=== PATIENT | female | born 1990 | race Caucasian/White ===

== ENCOUNTER 2018-04-19 21:14 | Emergency (ER) | payer SELFPAY ==
[2018-04-19] MEDS ORDERED: NORMAL SALINE 1000 ML 1,000 ML IV ONE (22:45)
[2018-04-19] MEDS ORDERED: CYCLOBENZAPRINE HCL 10 MG TABLET PO ONE (22:49)
--- NOTE | 2018-04-19 23:05 | ER Document Report ---
ED Headache - General Chief Complaint: Headache Stated Complaint: HEAD PAIN Time Seen by Provider: 04/19/18 22:25 Notes: Patient is a 19-year-old female presenting to the emergency department complaining of a headache for the last 4 days. States the headache has been intermittent for months now and is usually relieved with [id number] Motrin. States this headache is just like the others but unrelieved with Motrin. States this headache started in her cervical neck paraspinal muscles and moved into bilateral shoulders. Patient states at times it also moves over her entire head and into her forehead. Patient denies any fever, trauma, IV drug use, nuchal rigidity, photophobia. Patient does admit to intermittent nausea but denies vomiting. Patient denies any new lifting or moving in the last few weeks. Patient states she is without insurance and has not seen a PCP for these headaches. Patient states she is unaware if she has a diagnosis of migraines. Patient denies urinary retention, loss of bowel or bladder. Patient also denies chest pain, shortness of breath, abdominal pain, diarrhea, URI symptoms. Past history: Diverticulitis Medications: None Allergies: Shellfish Surgical history: None Last menstrual period 04/16/2018 TRAVEL OUTSIDE OF THE [place] IN LAST 30 DAYS: No - Related Data Allergies/Adverse Reactions: shellfish derived Allergy (Verified 04/19/18 21:17) Past Medical History - General Information source: Patient - Social History Smoking Status: Unknown if Ever Smoked Lives with: Family Family History: Reviewed & Not Pertinent Review of Systems - Review of Systems Constitutional: See HPI EENT: See HPI Cardiovascular: See HPI Respiratory: See HPI Gastrointestinal: See HPI Genitourinary: See HPI Female Genitourinary: See HPI Musculoskeletal: See HPI Skin: No symptoms reported Hematologic/Lymphatic: No symptoms reported Neurological/Psychological: See HPI Physical Exam - Vital signs Vitals: Temp Pulse Resp BP Pulse Ox 99.0 F 77 16 109/74 98 04/19/18 21:36 04/19/18 21:36 04/19/18 21:36 04/19/18 21:36 04/19/18 21:36 - Notes Notes: GENERAL: Alert, interacts well. No acute distress. HEAD: Normocephalic, atraumatic. EYES: Pupils equal, round, and reactive to light. Extraocular movements intact. ENT: Oral mucosa moist, tongue midline. NECK: Full range of motion. Supple. Trachea midline. pain paraspinal muscles BL cervical, no bony tenderness. pain also into BL trapezius muscles, increased pain upon shoulder shrugging. LUNGS: Clear to auscultation bilaterally, no wheezes, rales, or rhonchi. No respiratory distress. HEART: Regular rate and rhythm. No murmur ABDOMEN: Soft, non-tender. Non-distended. Bowel sounds present in all 4 quadrants. EXTREMITIES: Moves all 4 extremities spontaneously. No edema, normal radial and dorsalis pedis pulses bilaterally. No cyanosis. BACK: no cervical, thoracic, lumbar midline tenderness. No saddle anesthesia, normal distal neurovascular exam. NEUROLOGICAL: Alert and oriented x3. Normal speech. cranial nerves II through XII grossly intact PSYCH: Normal affect, normal mood. SKIN: Warm, dry, normal turgor. No rashes or lesions noted. Course - Re-evaluation Re-evalutation: After treatments patient states headache is now resolved. Pain in pts paraspinal neck and into shoulders consistent with tension headache. Once patient is in the room alone without her states she has had an increase in stress with her 's job. Toradol and Flexeril be given for home use. Follow-up with primary care. Return precautions given - Vital Signs Vital signs: Temp Pulse Resp BP Pulse Ox 97.6 F 66 20 117/54 L 96 04/20/18 02:25 04/20/18 02:25 04/20/18 02:25 04/20/18 02:25 04/20/18 02:25 - Laboratory Result Diagrams: 04/20/18 00:10 04/20/18 00:10 Laboratory results interpreted by me: 04/20/18 00:10 WBC 13.9 H Absolute Lymphocytes 4.8 H Discharge - Discharge Clinical Impression: Tension headache Condition: Stable Disposition: HOME, SELF-CARE Instructions: Headache ([facility]), Toradol Injection ([facility]) Prescriptions: Ketorolac Tromethamine [Toradol 10 mg Tablet] 10 mg PO Q8HP PRN #24 tablet PRN Reason: Cyclobenzaprine HCl [Flexeril 10 mg Tablet] 10 mg PO TIDP PRN #15 tab PRN Reason:
[2018-04-20 00:26] LABS: ABSOLUTE BASOPHILS # (AUTO) 0.2 10^3/uL (0.0-0.2); ABSOLUTE EOSINOPHILS # (AUTO) 0.3 10^3/uL (0.0-0.6); ABSOLUTE LYMPHOCYTES (AUTO) 4.8 10^3/uL (0.5-4.7); ABSOLUTE MONOCYTES (AUTO) 0.9 10^3/uL (0.1-1.4); ABSOLUTE NEUT (AUTO) 7.7 10^3/uL (1.7-8.2); BASOPHILS % (AUTO) 1.5 % (0-2); HEMATOCRIT 41.4 % (36.0-47.0); HEMOGLOBIN 13.9 g/dL (12.0-15.5); LYMPHOCYTES % (AUTO) 34.7 % (13-45); MEAN CORPUSCULAR HEMOGLOBIN 29.1 pg (27.0-33.4); MEAN CORPUSCULAR HGB CONC 33.6 g/dL (32.0-36.0); MEAN CORPUSCULAR VOLUME 87 fl (80-97); MONOCYTES % (AUTO) 6.4 % (3-13); PLATELET COUNT 328 10^3/uL (150-450); RED BLOOD COUNT 4.78 10^6/uL (3.72-5.28); RED CELL DISTRIBUTION WIDTH 13.5 % (11.5-14.0); SEGMENTED NEUTROPHILS % (AUTO) 55.4 % (42-78); TOTAL CELLS COUNTED % (AUTO) 100 %; WHITE BLOOD COUNT 13.9 10^3/uL (4.0-10.5)
[2018-04-20 00:37] LABS: ALANINE AMINOTRANSFERASE 44 U/L (9-52); ALBUMIN 4.1 g/dL (3.5-5.0); ALKALINE PHOSPHATASE 89 U/L (38-126); ANION GAP 9 (5-19); ASPARTATE AMINO TRANSFERASE 35 U/L (14-36); BILIRUBIN,DIRECT 0.1 mg/dL (0.0-0.4); BILIRUBIN,TOTAL 0.4 mg/dL (0.2-1.3); BLOOD UREA NITROGEN 14 mg/dL (7-20); CALCIUM 9.5 mg/dL (8.4-10.2); CARBON DIOXIDE 24 mmol/L (22-30); CHLORIDE 106 mmol/L (98-107); GLUCOSE 109 mg/dL (75-110); POTASSIUM 4.1 mmol/L (3.6-5.0); SODIUM 139.4 mmol/L (137-145); TOTAL PROTEIN 7.4 g/dL (6.3-8.2)
[2018-04-20] MEDS ORDERED: KETOROLAC TROMETHAMINE INJ/PF 30 MG/1 ML SDV IV ONE (01:52)
[2018-04-20 02:37] VITALS: BP 117/54
== END 2018-04-20 02:41 | disposition home or self-care (01) ==
LOC: ER 21:14
DX: G44.209 Tension-type headache, unspecified, not intractable (principal); R11.0 Nausea; Z91.013 Allergy to seafood; M79.18 Myalgia, other site
CPT/HCPCS: 99284; 96361; 96374; 36415; 84703; 85025; 80053; J1885; J7030

== ENCOUNTER 2018-06-18 06:19 | Emergency (ER) | payer OTHER ==
[2018-06-18 06:27] VITALS: BP 150/86
[2018-06-18] MEDS ORDERED: DIAZEPAM 5 MG TABLET PO ONE (06:54)
[2018-06-18] MEDS ORDERED: KETOROLAC TROMETHAMINE 60 MG/2 ML SDV IM ONE (06:54)
--- NOTE | 2018-06-18 06:57 | ER Document Report ---
ED Neck/Back Problem - General Chief Complaint: Back Pain Stated Complaint: BACK PAIN Time Seen by Provider: 06/18/18 06:41 Notes: 27-year-old female to the emergency department complaining of some left low back pain radiating down her left leg. 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 Did not fall. Did not land on her but or back. Just began to develop pain in the left gluteal region radiating down the left leg. Currently not . Not on any medications. No dysuria. No fever, chills, sweats. No loss of bowel or bladder function. No numbness in the inner thigh area. No other symptoms at this time. Able to walk. Able to stand. Able to bend over but hurts. TRAVEL OUTSIDE OF THE [place] IN LAST 30 DAYS: No - HPI Onset: Just prior to arrival Where: Work Onset: Sudden Timing: Constant Quality of pain: Achy - Related Data Allergies/Adverse Reactions: shellfish derived Allergy (Verified 06/18/18 06:42) Past Medical History - General Information source: Patient - Social History Smoking Status: Current Every Day Smoker Frequency of alcohol use: None Drug Abuse: None Lives with: Spouse/Significant other Family History: Reviewed & Not Pertinent Patient has suicidal ideation: No Patient has homicidal ideation: No Renal/ Medical History: Denies: Hx Peritoneal Dialysis Review of Systems - Review of Systems Notes: Constitutional: denies: Chills, Diaphoresis, Fever, Malaise, Weakness EENT: denies: Eye discharge, Blurred vision, Tearing, Double vision, Nose congestion, Nose discharge, Throat swelling, Mouth pain Cardiovascular: denies: Palpitations, Heart racing, Orthopnea, Dyspnea, Chest pain Respiratory: denies: Cough, Hurts to breathe, Wheezing, Shortness of breath Gastrointestinal: denies: Abdominal pain, Diarrhea, Nausea, Vomiting, Black stools, bright red blood in stool Genitourinary: denies: Burning, Dysuria, Discharge, Frequency, Flank pain, Hematuria Musculoskeletal: denies: Joint pain, Joint swelling, Muscle pain, Muscle stiffness. Complaining of pain in the low back, left piriformis/gluteal muscle area radiating down the left leg. Hematologic/Lymphatic: denies: Anemia, Easy bleeding, Easy bruising, Blood clots Neurological/Psychological: denies: Confusion, Dementia, Depression, Loss of consciousness Skin: No lesions, no masses, no skin breakdown, no abscesses Physical Exam - Vital signs Vitals: Temp Pulse Resp BP Pulse Ox 98.0 F 83 16 150/86 H 98 06/18/18 06:24 06/18/18 06:24 06/18/18 06:24 06/18/18 06:24 06/18/18 06:24 Interpretation: Normal - General General appearance: Appears well, Alert - HEENT Head: Normocephalic, Atraumatic Eyes: Normal Pupils: PERRL - Respiratory Respiratory status: No respiratory distress Chest status: Nontender Breath sounds: Normal Chest palpation: Normal - Cardiovascular Rhythm: Regular Heart sounds: Normal auscultation Murmur: No - Abdominal Inspection: Normal Distension: No distension Bowel sounds: Normal Tenderness: Nontender Organomegaly: No organomegaly - Back Back: Normal, Tender - In the left low back and left sacroiliac joint. + straight leg on the left. - Extremities General upper extremity: Normal inspection, Nontender, Normal color, Normal ROM , Normal temperature General lower extremity: Normal inspection, Nontender, Normal color, Normal ROM , Normal temperature, Normal weight bearing. No: Jackson's sign - Neurological Neuro grossly intact: Yes Cognition: Normal Orientation: AAOx4 Mullens Coma Scale Eye Opening: Spontaneous Lilibeth Coma Scale Verbal: Oriented Lilibeth Coma Scale Motor: Obeys Commands Lilibeth Coma Scale Total: 15 Speech: Normal Motor strength normal: LUE, RUE, LLE, RLE Sensory: Normal - Psychological Associated symptoms: Normal affect, Normal mood - Skin Skin Temperature: Warm Skin Moisture: Dry Skin Color: Normal Course - Re-evaluation Re-evalutation: 06/18/18 07:15 Patient has significant obesity. She has a BMI of 53. 140 kg. Did have a discussion with her with regards to low back pain and weight loss. She was advised to begin a strict low carbohydrate diet at this time. I am giving her some Valium for muscle relaxing as well as an anti-inflammatory prescription medication called Mobic. I have advised her to use some ice packs at this time. Red flag warning signs were discussed with the patient. Patient has no active red flag warning signs and was able to verbalize to me things that she should return for: Fever, progressive loss of function of the left lower extremity, loss of bowel or bladder function, numbness in the crotch area. At this time will discharge in stable condition. - Vital Signs Vital signs: Temp Pulse Resp BP Pulse Ox 98.0 F 83 16 150/86 H 98 06/18/18 06:24 18 06:24 06/18/18 06:24 06/18/18 06:24 06/18/18 06:24 Discharge - Discharge Clinical Impression: Low back pain Qualifiers: Chronicity: acute Back pain laterality: left Sciatica presence: with sciatica Sciatica laterality: sciatica of left side Qualified Code(s): M54.42 - Lumbago with sciatica, left side Condition: Good Disposition: HOME, SELF-CARE Instructions: Ice Packs ([facility]), Low Back Pain ([facility]), Muscle Strain ([facility]), Pain Medication Injection ([facility]) Prescriptions: Diazepam [Valium 5 mg Tablet] 5 mg PO QHS PRN #15 tablet PRN Reason: Muscle Spasms Meloxicam [Mobic] 15 mg PO DAILY 15 Days #15 tablet Forms: Return to Work
== END 2018-06-18 07:10 | disposition home or self-care (01) ==
LOC: ER 06:19
DX: M54.41 Lumbago with sciatica, right side (principal); X50.1XXA Overexertion from prolonged static or awkward postures, initial encounter; Y99.0 Civilian activity done for income or pay; F17.200 Nicotine dependence, unspecified, uncomplicated; E66.9 Obesity, unspecified; Z68.43 Body mass index [BMI] 50.0-59.9, adult; Z91.013 Allergy to seafood
CPT/HCPCS: 99283; 96372; J1885

== ENCOUNTER 2018-06-18 11:34 | Emergency (ER) | payer SELFPAY ==
[2018-06-18] MEDS ORDERED: HYDROMORPHONE HCL INJ/PF 2 MG/ML AMPULE IM ONE (12:04)
[2018-06-18] MEDS ORDERED: LIDOCAINE 5% (700 MG) TRANSDERMAL ADH..PATCH TP ONE (12:06)
--- NOTE | 2018-06-18 12:06 | ER Document Report ---
HPI - HPI Patient complains to provider of: Low back pain Time Seen by Provider: 06/18/18 11:47 Onset: Just prior to arrival Onset/Duration: Persistent Quality of pain: Sharp Pain Level: 5 Context: Patient states that she has a history of chronic low back pain although this pain is more severe than normal. Patient states pain radiates to the left hip and leg area. Patient states she was seen earlier in the emergency department and given a shot of Toradol and Valium. Patient denies any pain relief symptoms. Patient denies any fever or injury. Patient denies any urinary retention or incontinence. Associated Symptoms: Other - Low back pain Exacerbated by: Movement Relieved by: Denies Similar symptoms previously: Yes Recently seen / treated by doctor: Yes - ROS ROS below otherwise negative: Yes Systems Reviewed and Negative: Yes All other systems reviewed and negative - CONSTITUTIONAL Constitutional: DENIES: Fever, Chills - NEURO Neurology: DENIES: Headache, Weakness - GASTROINTESTINAL Gastrointestinal: DENIES: Nausea, Patient vomiting - URINARY Urinary: DENIES: Dysuria - MUSCULOSKELETAL Musculoskeletal: REPORTS: Extremity pain, Back Pain - DERM Skin Color: Normal Skin Problems: None Past Medical History - General Information source: Patient - Social History Smoking Status: Current Every Day Smoker Smoking Education Provided: Yes Frequency of alcohol use: None Drug Abuse: None Occupation: administrative support assistant Lives with: Spouse/Significant other Family History: Reviewed & Not Pertinent Renal/ Medical History: Denies: Hx Peritoneal Dialysis Musculoskeletal Medical History: Reports Other - Chronic back pain Surgical Hx: Negative Vertical Provider Document - CONSTITUTIONAL Agree With Documented VS: Yes Exam Limitations: No Limitations General Appearance: WD/WN, No Apparent Distress Notes: PHYSICAL EXAMINATION: GENERAL: Well-appearing, morbidly obese and in no acute distress. HEAD: Atraumatic, normocephalic. EYES: sclera clear, anicteric, conjunctiva are normal. ENT: nares patent, Moist mucous membranes. NECK: Normal range of motion, supple no lymphadenopathy LUNGS: respirations unlabored HEART: Regular rate and rhythm without murmurs EXTREMITIES: Normal range of motion, no pitting or edema. No cyanosis. Gait normal, pt ambulates without difficulty BACK: Left lower lumbar paraspinal tenderness, left SI joint tenderness, no deformities or step-offs. No CVA tenderness. NEUROLOGICAL: Cranial nerves grossly intact. Normal speech, normal gait. No saddle anesthesia. 2+ bilateral Achilles reflexes PSYCH: Normal mood, normal affect. SKIN: Warm, Dry, normal turgor, no rashes or lesions noted. - INFECTION CONTROL TRAVEL OUTSIDE OF THE [place] IN LAST 30 DAYS: No Course - Re-evaluation Re-evalutation: 06/18/18 12:06 The patient presents with low back pain without signs of spinal cord compression , cauda equina syndrome, infection, aneurysm, or other serious etiology. The patient is neurologically intact. Given the extremely risk of these diagnoses further testing and evaluation for these possibilities does not appear to be indicated at this time. Patient has been instructed to return if the symptoms worsen or change in any way. 06/18/18 13:[address] Gagnon regarding patient presentation given that she returned after previous ER visit this morning. Agrees with treatment plan at this time, no additional testing advised. - Vital Signs Vital signs: Temp Pulse Resp BP Pulse Ox 98.5 F 65 18 146/80 H 99 06/18/18 11:37 06/18/18 11:37 06/18/18 11:37 06/18/18 11:37 06/18/18 11:37 Discharge - Discharge Clinical Impression: Low back pain Qualifiers: Chronicity: unspecified Back pain laterality: left Sciatica presence: with sciatica Sciatica laterality: sciatica of left side Qualified Code(s): M54.42 - Lumbago with sciatica, left side Condition: Stable Disposition: HOME, SELF-CARE Instructions: Ice Packs ([facility]), Low Back Pain ([facility]), Pain Medication Injection ( [facility]) Additional Instructions: Return immediately for any new or worsening symptoms Followup with your primary care provider, call tomorrow to make a followup appointment Forms: Smoking Cessation Education Referrals: [facility] [Provider Group] - Follow up as needed
[2018-06-18 13:48] VITALS: BP 150/70
== END 2018-06-18 13:44 | disposition home or self-care (01) ==
LOC: ER 11:34
DX: M54.42 Lumbago with sciatica, left side (principal); E66.01 Morbid (severe) obesity due to excess calories; F17.200 Nicotine dependence, unspecified, uncomplicated
CPT/HCPCS: 99283; 96372; J1170

== ENCOUNTER 2018-06-19 11:43 | Emergency (ER) | payer SELFPAY ==
[2018-06-19] MEDS ORDERED: LIDOCAINE 5% (700 MG) TRANSDERMAL ADH..PATCH TP ONE (12:22)
[2018-06-19] MEDS ORDERED: KETOROLAC TROMETHAMINE 60 MG/2 ML SDV IM ONE (12:22)
[2018-06-19] MEDS ORDERED: CYCLOBENZAPRINE HCL 10 MG TABLET PO ONE (12:22)
--- NOTE | 2018-06-19 12:28 | ER Document Report ---
HPI - HPI Patient complains to provider of: buttocks pain Time Seen by Provider: 06/19/18 12:13 Pain Level: 5 Context: Patient is a 19-year-old female complaining of lower back pain radiating to her left buttocks. Patient states she was to this facility twice yesterday initially treated with meloxicam and Valium. States that did not help her pain whatsoever so she returned. States she was then treated with Dilaudid by another provider in the emergency room states that helped a lot. Patient states she has not taken any of the Valium or meloxicam because initially they did not help her at all. Patient is initially requesting more pain management at this time. Patient denies any urinary retention, denies loss of bowel or bladder. Denies any increase or decrease in her pain. States the Dilaudid yesterday did decrease her pain but it has come back the same as it was prior to the Dilaudid administration. Patient stated she has been to this facility previous times for the same complaint and given steroids. States the steroids usually help her pain. Past medical history: Intermittent back pain with sciatic nerve impingement Medications: Meloxicam, Valium Allergies: Shellfish Past Medical History - General Information source: Patient - Social History Smoking Status: Unknown if Ever Smoked Family History: Reviewed & Not Pertinent Renal/ Medical History: Denies: Hx Peritoneal Dialysis Vertical Provider Document - CONSTITUTIONAL Agree With Documented VS: Yes Notes: GENERAL: Morbidly obese alert, interacts well. No acute distress. Nontoxic, able to stand and move all extremities without my asking HEAD: Normocephalic, atraumatic. EYES: Pupils equal, round, and reactive to light. Extraocular movements intact. ENT: Oral mucosa moist, tongue midline. NECK: Full range of motion. Supple. Trachea midline. LUNGS: Clear to auscultation bilaterally, no wheezes, rales, or rhonchi. No respiratory distress. HEART: Regular rate and rhythm. No murmur ABDOMEN: Soft, non-tender. Non-distended. Bowel sounds present in all 4 quadrants. EXTREMITIES: Moves all 4 extremities spontaneously. No edema, normal radial and dorsalis pedis pulses bilaterally. No cyanosis. 5 out of 5 strength all 4 extremities BACK: no cervical, thoracic, lumbar midline tenderness. No saddle anesthesia, normal distal neurovascular exam. Patient states pain is more left lumbar paraspinal moving into her left buttocks and moving down her left leg. Patient denies numbness or tingling of any extremity NEUROLOGICAL: Alert and oriented x3. Normal speech. cranial nerves II through XII grossly intact PSYCH: Normal affect, normal mood. SKIN: Warm, dry, normal turgor. No rashes or lesions noted. - INFECTION CONTROL TRAVEL OUTSIDE OF THE [place] IN LAST 30 DAYS: No Course - Re-evaluation Re-evalutation: 06/19/18 12:26 Discussed with patient at length that Flexeril may work better if volume is not working. Stated she cannot take both of them together. Patient states she has not taken the Valium because it is not helping at all. Discussed with her that steroids are not warranted at this time for sciatic nerve pain. Discussed need to follow-up with orthopedics and specific back and buttock stretching. Pain has not increased or changed from her other 2 visits to the emergency room. No need for imaging at this time. Patient does not have midline spinal tenderness. No loss of bowel or bladder, no urinary retention noted. 5 out of 5 strength all 4 extremities. No numbness or tingling in any extremity. Discussed with her her body habitus may be playing into her left sciatic nerve pain. Patient stable for discharge at this time - Vital Signs Vital signs: Temp Pulse Resp BP Pulse Ox 98.9 F 82 16 154/96 H 98 06/19/18 11:45 06/19/18 11:45 06/19/18 11:45 06/19/18 11:45 06/19/18 11:45 Discharge - Discharge Clinical Impression: Back pain Qualifiers: Back pain location: low back pain Chronicity: chronic Back pain laterality: left Sciatica presence: with sciatica Sciatica laterality: sciatica of left side Qualified Code(s): M54.42 - Lumbago with sciatica, left side; G89.29 - Other chronic pain; G89.29 - Other chronic pain Condition: Stable Disposition: HOME, SELF-CARE Instructions: Warm Packs ([facility]), Pain Medication Injection ([facility]), Low Back Pain ([facility]), Sciatica ([facility]) Additional Instructions: Her back pain and sciatic nerve pain. You should take medications as prescribed. You cannot take Valium and Flexeril at the same time. If you take them at the same time you may have respiratory depression and potentially respiratory arrest. Please do stretches as often as you can. Please make an appointment with your primary care provider and then orthopedics as needed. Please return to the emergency room for any other concerning symptoms. As we discussed you have been seen and treated in the emergency department for stretching Exercises for the Back The physician has recommended that you begin stretching exercises for your back. These are often used even while the back is painful. However, you should notify the physician if the activities seem to increase your pain. PELVIC TILT: Lie flat on your back with knees bent. Tighten your stomach and buttock muscles so it flattens your lower back against the floor. Hold 10 seconds. Repeat 10 times, twice daily. KNEE RAISE: Lying on the back with knees bent, raise one knee to your chest, then the other. Hold both knees against the chest 10 seconds, then lower one knee at a time. Repeat 10 times, twice daily. PARTIAL TRUNK RAISE: Lie face down, arms at your sides. Keeping your waist on the floor, use your arms raise your chest up. Support yourself on your elbows for 30 seconds. Repeat twice daily, increasing the time to two minutes as you recover. Prescriptions: Cyclobenzaprine HCl [Flexeril 10 mg Tablet] 10 mg PO TIDP PRN #15 tab PRN Reason: Forms: Elevated Blood Pressure Referrals: SULEMAN KRAUS DO [ACTIVE STAFF] - Follow up as needed
[2018-06-19 12:44] VITALS: BP 133/85
== END 2018-06-19 12:44 | disposition home or self-care (01) ==
LOC: ER 11:43
DX: G89.29 Other chronic pain (principal); M54.42 Lumbago with sciatica, left side; M79.10 Myalgia, unspecified site; E66.01 Morbid (severe) obesity due to excess calories; Z91.013 Allergy to seafood
CPT/HCPCS: 99283; 96372; J1885

== ENCOUNTER 2018-10-15 10:38 | Emergency (ER) | payer OTHER ==
[2018-10-15] MEDS ORDERED: ACETAMINOPHEN 325 MG TABLET PO ONE (11:18)
--- NOTE | 2018-10-15 11:22 | ER Document Report ---
HPI - HPI Patient complains to provider of: Cough and congestion Time Seen by Provider: 10/15/18 11:09 Pain Level: 5 Context: Patient is an otherwise healthy 28-year-old female presents to the emergency department for generalized cough, congestion, body aches, fever T-max 102 for the last 3 days. Patient's denying any shortness of breath, states she does have some generalized chest pain only when she takes a deep breath or coughs. Patient is denying any abdominal pain or dysuria. Past medical history: None Medications: None Allergies: Shellfish Last menstrual period: Currently - CONSTITUTIONAL Constitutional: DENIES: Chills - EENT EENT: REPORTS: Sore Throat - NEURO Neurology: REPORTS: Headache - RESPIRATORY Respiratory: REPORTS: Coughing - REPRODUCTIVE Reproductive: DENIES: : Past Medical History - General Information source: Patient - Social History Smoking Status: Current Every Day Smoker Chew tobacco use (# tins/day): No Frequency of alcohol use: Rare Drug Abuse: None Family History: Reviewed & Not Pertinent Patient has suicidal ideation: No Patient has homicidal ideation: No Renal/ Medical History: Denies: Hx Peritoneal Dialysis Vertical Provider Document - CONSTITUTIONAL Agree With Documented VS: Yes Notes: GENERAL: Morbidly obese, alert interacts well. No acute distress. HEAD: Normocephalic, atraumatic. No frontal or maxillary sinus tenderness noted EYES: Pupils equal, round, and reactive to light. Extraocular movements intact. ENT: Oral mucosa moist, tongue midline. Nares patent, swollen turbinates noted bilaterally, TM's intact, nonerythematous, nonbulging bilaterally, pharynx within normal limits no palatal petechiae or exudate noted NECK: Full range of motion. Supple. Trachea midline. No lymphadenopathy appreciated LUNGS: Clear to auscultation bilaterally, no wheezes, rales, or rhonchi. No respiratory distress. HEART: Regular rate and rhythm. No murmur ABDOMEN: Soft, non-tender. Non-distended. Bowel sounds present in all 4 quadrants. EXTREMITIES: Moves all 4 extremities spontaneously. No edema, normal radial and dorsalis pedis pulses bilaterally. No cyanosis. BACK: no cervical, thoracic, lumbar midline tenderness. No saddle anesthesia, normal distal neurovascular exam. NEUROLOGICAL: Alert and oriented x3. Normal speech. cranial nerves II through XII grossly intact. PSYCH: Normal affect, normal mood. SKIN: Warm, dry, normal turgor. No rashes or lesions noted. - INFECTION CONTROL TRAVEL OUTSIDE OF THE [place] IN LAST 30 DAYS: No Course - Re-evaluation Re-evalutation: 10/15/18 12:01 Chest x-ray reveals no signs of abnormalities, no pneumonia, pneumothorax, rib fracture. Likely URI caused by virus. Patient stable for discharge. - Vital Signs Vital signs: Temp Pulse Resp BP Pulse Ox 98.4 F 95 22 H 131/92 H 97 10/15/18 10:48 10/15/18 10:48 10/15/18 10:48 10/15/18 10:48 10/15/18 10:48 Discharge - Discharge Clinical Impression: Upper respiratory infection Qualifiers: URI type: unspecified viral URI Qualified Code(s): J06.9 - Acute upper respiratory infection, unspecified Condition: Stable Disposition: HOME, SELF-CARE Instructions: Upper Respiratory Illness ([facility]), Viral Syndrome ([facility]) Additional Instructions: Your symptoms are most likely due to a viral infection it should resolve over the next 7-14 days. You should take [id number] guanfacine per bottle instructions to help thin the mucus. For nasal congestion: I would recommend that you get [id number] oxymetazoline also known is afrin. Use only per bottle instructions and be sure to never use this for more than 3 days if you can develop severe rebound congestion. You may also use tylenol or ibuprofen as needed for aches and thorat discomfort. Please be sure to drink plenty of fluids and get rest. Return to the emergency department he began having difficulty breathing, chest pain, persistent vomiting, or any other symptoms that are concerning to you. Prescriptions: Benzonatate [Tessalon Perles 100 mg Capsule] 100 mg PO Q8HP PRN #40 capsule PRN Reason: Mometasone Furoate [Nasonex] 1 spray NS Q12 #1 spray.pump Forms: Return to Work Referrals: [facility] [Provider Group] - Follow up as needed
--- NOTE | 2018-10-15 11:51 | RADIOLOGY REPORT (SQ) ---
EXAM DESCRIPTION: CHEST 2 VIEWS COMPLETED DATE/TIME: 10/15/2018 11:39 am REASON FOR STUDY: cough/fever COMPARISON: None. TECHNIQUE: Frontal and lateral radiographic views of the chest acquired. NUMBER OF VIEWS: Two view. LIMITATIONS: None. FINDINGS: LUNGS AND PLEURA: No opacities, masses or pneumothorax. No pleural effusion. MEDIASTINUM AND HILAR STRUCTURES: No masses or contour abnormalities. HEART AND VASCULAR STRUCTURES: Heart normal size. No evidence for failure. BONES: No acute findings. HARDWARE: None in the chest. OTHER: No other significant finding. IMPRESSION: NO SIGNIFICANT RADIOGRAPHIC FINDING IN THE CHEST. TECHNICAL DOCUMENTATION: JOB ID: [id number] [employer]- All Rights Reserved Reading location - IP/workstation name: [email or web address]
[2018-10-15 12:03] VITALS: BP 134/72
== END 2018-10-15 12:17 | disposition home or self-care (01) ==
LOC: ER 10:38
DX: J06.9 Acute upper respiratory infection, unspecified (principal); M79.10 Myalgia, unspecified site; R50.9 Fever, unspecified; R51 Headache; E66.01 Morbid (severe) obesity due to excess calories; F17.200 Nicotine dependence, unspecified, uncomplicated
CPT/HCPCS: 71046; 99283

== ENCOUNTER 2019-08-06 08:25 | Emergency (ER) | payer OTHER ==
[2019-08-06] MEDS ORDERED: ONDANSETRON 4 MG TAB.RAPDIS PO ONE (10:07)
--- NOTE | 2019-08-06 10:08 | ER Document Report ---
ED GI/ - General Chief Complaint: Nausea/Vomiting/Diarrhea Stated Complaint: NAUSEA,VOMITING,DIARRHEA Time Seen by Provider: 08/06/19 10:03 Notes: CHIEF COMPLAINT: Vomiting and diarrhea that began around 2 AM HPI: 29-year-old female presenting to the emergency department complaining of vomiting and diarrhea that began around 2 AM. Patient states she has had 5-6 episodes of both vomiting and diarrhea. Denies abdominal pain except for some cramping prior to vomiting. Denies dysuria. Denies fever or other recent illness ROS: See HPI - all other systems were reviewed and are otherwise negative Constitutional: no fever Eyes: no drainage, no blurred vision ENT: no runny nose, no sore throat Cardiovascular: no chest pain Resp: no SOB, no cough GI: + vomiting, + diarrhea, no abdominal pain : no dysuria Integumentary: no rash Allergy: no hives Musculoskeletal: no extremity pain or swelling Neurological: no numbness/tingling, no weakness MEDICATIONS: I agree with the patient medications as charted by the RN. ALLERGIES: I agree with the allergies as charted by the RN. PAST MEDICAL HISTORY/PAST SURGICAL HISTORY: Reviewed and agree as charted by RN. SOCIAL HISTORY: Reviewed and agree as charted by RN. FAMILY HISTORY: No significant familial comorbid conditions directly related to patient complaint EXAM: Reviewed vital signs as charted by RN. CONSTITUTIONAL: Alert and oriented and responds appropriately to questions. Well-appearing; well-nourished, mild distress secondary to nausea HEAD: Normocephalic; atraumatic EYES: PERRL; Conjunctivae clear, sclerae non-icteric ENT: normal nose; no rhinorrhea; moist mucous membranes; pharynx without lesions noted, no uvula edema or deviation, no tonsillar hypertrophy, phonation normal NECK: Supple without meningismus; non-tender; no cervical lymphadenopathy, no masses CARD: RRR; no murmurs, no clicks, no rubs, no gallops; symmetric distal pulses RESP: Normal chest excursion without splinting or tachypnea; breath sounds clear and equal bilaterally; no wheezes, no rhonchi, no rales, pulse oximetry ABD/GI: Morbidly obese, normal bowel sounds; non-distended; soft, non-tender, no rebound, no guarding; no palpable organomegaly or masses. BACK: The back appears normal and is non-tender to palpation, there is no CVA tenderness EXT: Normal ROM in all joints; non-tender to palpation; no cyanosis, no effusions, no edema SKIN: Normal color for age and race; warm; dry; good turgor; no acute lesions noted NEURO: Moves all extremities equally; Motor and sensory function intact PSYCH: The patient's mood and manner are appropriate. Grooming and personal hygiene are appropriate. MDM: 29-year-old female presenting with vomiting and diarrhea has no abdominal pain on palpation likely a viral etiology. Will obtain urinalysis, patient does not wish to have IV at this time, willing to take oral Zofran and p.o. challenge TRAVEL OUTSIDE OF THE [place] IN LAST 30 DAYS: No - Related Data Allergies/Adverse Reactions: shellfish derived Allergy (Verified 08/06/19 08:42) Home Medications: Ibuprofen Past Medical History - Social History Smoking Status: Current Every Day Smoker Chew tobacco use (# tins/day): No Frequency of alcohol use: None Drug Abuse: None Family History: Reviewed & Not Pertinent Patient has suicidal ideation: No Patient has homicidal ideation: No Renal/ Medical History: Denies: Hx Peritoneal Dialysis Physical Exam - Vital signs Vitals: Temp Pulse Resp BP Pulse Ox 98.2 F 95 20 124/67 96 08/06/19 08:26 08/06/19 08:26 08/06/19 08:26 08/06/19 08:26 08/06/19 08:26 Course - Re-evaluation Re-evalutation: 08/06/19 11:17 Patient states nausea is resolved after Zofran. She is tolerating p.o. and wishes to go home. Urine does not show evidence of infection will discharge on Zofran, no abdominal pain on repeat exam - Vital Signs Vital signs: Temp Pulse Resp BP Pulse Ox 98.2 F 95 20 124/67 96 08/06/19 08:26 08/06/19 08:26 08/06/19 08:26 08/06/19 08:26 08/06/19 08:26 - Laboratory Laboratory results interpreted by me: 08/06/19 10:09 Urine Protein 100 H Urine Blood MODERATE H Discharge - Discharge Clinical Impression: Nausea vomiting and diarrhea Condition: Stable Disposition: HOME, SELF-CARE Additional Instructions: Take Zofran for nausea or vomiting. Hydrate well at home. Return for intractable vomiting or onset of fever or focal abdominal pain Prescriptions: Ondansetron [Zofran Odt 4 mg Tablet] 1 - 2 tab PO Q4H PRN #15 tab.rapdis PRN Reason: For Nausea/Vomiting Referrals: TREVA VELAZQUEZ MD [ACTIVE STAFF] - Follow up as needed
[2019-08-06 10:33] LABS: APPEARANCE,URINE SLIGHTLY-CLOUDY; BILIRUBIN,URINE NEGATIVE (NEGATIVE); COLOR,URINE YELLOW; GLUCOSE, URINE NEGATIVE (NEGATIVE); KETONES,URINE NEGATIVE (NEGATIVE); LEUKOCYTE ESTERASE,URINE NEGATIVE (NEGATIVE); NITRITE,URINE NEGATIVE (NEGATIVE); PROTEIN,URINE 100 mg/dL (NEGATIVE); URINE SPECIFIC GRAVITY 1.023; UROBILINOGEN,URINE NEGATIVE mg/dL (<2.0)
[2019-08-06 11:25] VITALS: BP 138/85
== END 2019-08-06 11:27 | disposition home or self-care (01) ==
LOC: ER 08:25
DX: R11.2 Nausea with vomiting, unspecified (principal); R19.7 Diarrhea, unspecified; F17.200 Nicotine dependence, unspecified, uncomplicated; Z91.013 Allergy to seafood
CPT/HCPCS: 99284; 81025; 81001; S0119

== ENCOUNTER 2020-07-23 17:22 | Emergency (ER) | payer OTHER ==
[2020-07-23] MEDS ORDERED: NORMAL SALINE 1000 ML 1,000 ML IV ONE ×2 (18:30→22:56)
--- NOTE | 2020-07-23 18:33 | ER Document Report ---
ED Medical Screen (RME) - General Chief Complaint: Abdominal Pain Stated Complaint: ABDOMINAL PAIN,RECTAL PAIN Time Seen by Provider: 07/23/20 18:24 TRAVEL OUTSIDE OF THE [place] IN LAST 30 DAYS: No - HPI Notes: 07/23/20 18:31 30-year-old female with history of diverticulitis presents to the emergency room today for sudden onset abdominal pain in her right lower quadrant left lower quadrant pain that started at 3:30 PM and has been constant since. Patient states that she works the night so she took a laxative at 10 AM because she has not had a bowel movement in 3 days which is abnormal for her. She states that she was not able to use the bathroom, she gave her self an enema at 415 this afternoon without resolve. Patient reports she is having nausea, denies any vomiting. Reports last menstrual cycle was 07/14/2020. Denies any chest pain, shortness of breath. Patient states the last time she had a similar incident of this, they thought she had appendicitis but she ended up having diverticulitis. Denies any vaginal bleeding vaginal discharge. Patient reports she is having some rectal pain from trying to use the bathroom. I have greeted and performed a rapid initial assessment of this patient. A comprehensive ED assessment and evaluation of the patient, analysis of test results and completion of the medical decision making process will be conducted by additional ED providers. PHYSICAL EXAMINATION: GENERAL: Well-appearing, well-nourished and in no acute distress. LUNGS: No respiratory distress Musculoskeletal: Normal range of motion abd: RLQ, LLQ abd pain on palpation. no cva tenderness appreciated bilaterally NEUROLOGICAL: Normal speech, normal gait. SKIN: Warm, Dry, normal turgor, no rashes or lesions noted. The patient was evaluated during a global COVID-19 pandemic and that diagnosis was suspected/considered upon their initial presentation. Their evaluation, treatment and testing was consistent with current guidelines for patients who present with complaints or symptoms and may be related to COVID-19. - Related Data Allergies/Adverse Reactions: shellfish derived Allergy (Verified 08/06/19 08:42) Past Medical History Renal/ Medical History: Denies: Hx Peritoneal Dialysis Physical Exam - Vital signs Vitals: Temp Pulse Resp BP Pulse Ox 97.9 F 113 H 18 135/99 H 97 07/23/20 17:30 07/23/20 17:30 07/23/20 17:30 07/23/20 17:30 07/23/20 17:30 Course - Vital Signs Vital signs: Temp Pulse Resp BP Pulse Ox 97.9 F 113 H 18 135/99 H 97 07/23/20 17:30 07/23/20 17:30 07/23/20 17:30 07/23/20 17:30 07/23/20 17:30
[2020-07-23 19:06] LABS: ABSOLUTE BASOPHILS # (AUTO) 0.1 10^3/uL (0.0-0.2); ABSOLUTE EOSINOPHILS # (AUTO) 0.1 10^3/uL (0.0-0.6); ABSOLUTE LYMPHOCYTES (AUTO) 2.7 10^3/uL (0.5-4.7); ABSOLUTE MONOCYTES (AUTO) 0.7 10^3/uL (0.1-1.4); ABSOLUTE NEUT (AUTO) 11.1 10^3/uL (1.7-8.2); BASOPHILS % (AUTO) 0.5 % (0-2); EOSINOPHILS % (AUTO) 0.7 % (0-6); HEMATOCRIT 42.3 % (36.0-47.0); LYMPHOCYTES % (AUTO) 18.3 % (13-45); MEAN CORPUSCULAR HEMOGLOBIN 28.3 pg (27.0-33.4); MEAN CORPUSCULAR HGB CONC 33.2 g/dL (32.0-36.0); MEAN CORPUSCULAR VOLUME 85 fl (80-97); MONOCYTES % (AUTO) 4.5 % (3-13); PLATELET COUNT 375 10^3/uL (150-450); RED BLOOD COUNT 4.96 10^6/uL (3.72-5.28); RED CELL DISTRIBUTION WIDTH 13.8 % (11.5-14.0); TOTAL CELLS COUNTED % (AUTO) 100 %; WHITE BLOOD COUNT 14.6 10^3/uL (4.0-10.5)
[2020-07-23 19:25] LABS: ALBUMIN 4.3 g/dL (3.5-5.0); ALKALINE PHOSPHATASE 85 U/L (38-126); ANION GAP 7 (5-19); ASPARTATE AMINO TRANSFERASE 36 U/L (14-36); BILIRUBIN,DIRECT 0.2 mg/dL (0.0-0.4); BILIRUBIN,TOTAL 0.4 mg/dL (0.2-1.3); BLOOD UREA NITROGEN 12 mg/dL (7-20); CALCIUM 9.6 mg/dL (8.4-10.2); CARBON DIOXIDE 26 mmol/L (22-30); CHLORIDE 103 mmol/L (98-107); GLUCOSE 194 mg/dL (75-110); POTASSIUM 4.2 mmol/L (3.6-5.0); TOTAL PROTEIN 7.3 g/dL (6.3-8.2)
[2020-07-23 21:21] LABS: APPEARANCE,URINE CLOUDY; BILIRUBIN,URINE NEGATIVE (NEGATIVE); COLOR,URINE AMBER; GLUCOSE, URINE NEGATIVE (NEGATIVE); KETONES,URINE 20 mg/dL (NEGATIVE); LEUKOCYTE ESTERASE,URINE SMALL (NEGATIVE); NITRITE,URINE POSITIVE (NEGATIVE); PROTEIN,URINE 30 mg/dL (NEGATIVE); URINE SPECIFIC GRAVITY 1.024; UROBILINOGEN,URINE NEGATIVE mg/dL (<2.0)
[2020-07-23] MEDS ORDERED: KETOROLAC TROMETHAMINE INJ/PF 30 MG/1 ML SDV IV ONE (21:23)
--- NOTE | 2020-07-23 22:01 | RADIOLOGY REPORT (SQ) ---
EXAM: CT ABD/PELVIS WITH IV ORAL CLINICAL INDICATION: 30-year-old female with RIGHT lower quadrant and LEFT lower quadrant abdominal pain for four hours. History of diverticulitis. COMPARISON: No prior imaging is available for comparison. EXAMINATION: CT of the abdomen and pelvis was performed following intravenous administration of contrast. Oral contrast was administered. Multiplanar reformatted images were provided. This exam was performed according to our departmental dose optimization program which includes use of automated exposure control, adjustment of the mA and/or kV according to patient size and/or use of iterative reconstruction technique. FINDINGS: Chest: Evaluation through the lung bases reveals no focal opacity, pleural effusion or pneumothorax. Heart size is within normal limits. No pericardial effusion. Abdomen and pelvis: The liver, gallbladder, pancreas, spleen, bilateral kidneys and bilateral adrenal glands are within normal limits. The vessels are patent and normal in caliber. No abdominopelvic lymph nodes are noted to be pathologically enlarged by CT measurement criteria. The bowel is within normal limits without abnormal bowel wall thickness or bowel dilation. No free air. No free abdominopelvic fluid collections. The appendix is within normal limits. The uterus and adnexa are within normal limits of a contrast-enhanced CT examination. The osseous structures reveal degenerative change of the L5-S1 level. IMPRESSION: 1. No specific acute intra-abdominal findings are noted to suggest etiology of the patient's abdominal pain.
[2020-07-23] MEDS ORDERED: CEFTRIAXONE 1 GM/D5W RTU 1 GM/50 ML RTUPB IV ONE (22:02)
[2020-07-23] MEDS ORDERED: LIDOCAINE 2% JELLY 30 ML TUBE TOP ONE (22:32)
[2020-07-23] MEDS ORDERED: DICYCLOMINE HCL 20 MG TABLET PO ONE (22:32)
[2020-07-23] MEDS ORDERED: MINERAL OIL 30 ML UDCUP PR ONE (22:32)
--- NOTE | 2020-07-23 22:34 | ER Document Report ---
ED GI/ - General Chief Complaint: Abdominal Pain Stated Complaint: ABDOMINAL PAIN,RECTAL PAIN Time Seen by Provider: 07/23/20 22:08 Primary Care Provider: [facility] [Provider Group] - Follow up as needed Mode of Arrival: Ambulatory Information source: Patient Notes: 30-year-old female with history of diverticulitis presents to the emergency room today for sudden onset abdominal pain in her right lower quadrant left lower quadrant pain that started at 3:30 PM and has been constant since. Patient states that she works the night so she took a laxative at 10 AM because she has not had a bowel movement in 3 days which is abnormal for her. She states that she was not able to use the bathroom, she gave her self an enema at 415 this afternoon without resolve. Patient reports she is having nausea, denies any vomiting. Reports last menstrual cycle was 07/14/2020. Denies any chest pain, shortness of breath. Patient states the last time she had a similar incident of this, they thought she had appendicitis but she ended up having diverticulitis. Denies any vaginal bleeding vaginal discharge. Patient reports she is having some rectal pain from trying to use the bathroom. TRAVEL OUTSIDE OF THE [place] IN LAST 30 DAYS: No - HPI Patient complains to provider of: Abdominal pain, Other - Dull pain. No: Vomiting Onset: This morning Timing/Duration: Worse Quality of pain: Sharp Pain Level: 5 Location: Rectal Vaginal bleeding (Compared to normal period): None Associated symptoms: Constipation, Nausea. denies: Dysuria, Fever, Loss of appetite, Urinary hesitancy, Urinary frequency, Urinary retention, Urinary urgency, Vaginal discharge, Vomiting Exacerbated by: Denies Relieved by: Denies Similar symptoms previously: No Recently seen / treated by doctor: No - Related Data Allergies/Adverse Reactions: shellfish derived Allergy (Verified 08/06/19 08:42) Past Medical History - General Information source: Patient - Social History Smoking Status: Current Every Day Smoker Frequency of alcohol use: None Drug Abuse: None Occupation: assistant education director Lives with: Family Family History: Reviewed & Not Pertinent Renal/ Medical History: Denies: Hx Peritoneal Dialysis GI Medical History: Reports: Hx Diverticulitis Surgical Hx: Negative Review of Systems - Review of Systems Constitutional: No symptoms reported. denies: Fever EENT: No symptoms reported Cardiovascular: No symptoms reported. denies: Chest pain Respiratory: No symptoms reported. denies: Cough Gastrointestinal: Abdominal pain, Constipation, Other - Rectal pain. denies: Nausea, Vomiting Genitourinary: No symptoms reported Female Genitourinary: No symptoms reported Musculoskeletal: No symptoms reported Skin: No symptoms reported Hematologic/Lymphatic: No symptoms reported Neurological/Psychological: No symptoms reported Physical Exam - Vital signs Vitals: Temp Pulse Resp BP Pulse Ox 97.9 F 113 H 18 135/99 H 97 07/23/20 17:30 07/23/20 17:30 07/23/20 17:30 07/23/20 17:30 07/23/20 17:30 - Notes Notes: PHYSICAL EXAMINATION: GENERAL: Well-appearing and in no acute distress. HEAD: Atraumatic, normocephalic. EYES: sclera anicteric, conjunctiva are normal. ENT: nares patent. Moist mucous membranes. NECK: Normal range of motion, supple without lymphadenopathy LUNGS: CTAB and equal. No wheezes rales or rhonchi. HEART: Regular rate and rhythm without murmurs ABDOMEN: Morbidly obese, soft, suprapubic tenderness, lower pelvic tenderness, normal bowel sounds, no guarding. EXTREMITIES: Normal range of motion, no pitting edema. No cyanosis. BACK: No midline tenderness, no step-off or deformity. No CVA tenderness NEUROLOGICAL: Cranial nerves grossly intact. Normal speech. Normal gait. PSYCH: Normal mood, normal affect. SKIN: Warm, Dry, normal turgor, no rashes or lesions noted - Rectal Hemorrhoids: External Notes: Patient refused digital rectal exam although is willing for visual examination of rectal area Course - Re-evaluation Re-evalutation: 07/23/20 23:54 Patient reports passing flatus and feeling better and requesting to be discharged. Patient declines enema at this time. Patient's abdomen soft, no guarding. Patient without any obstructive uropathy. No evidence of any d iverticulitis. Will obtain urine culture and treat for UTI at this time. Good return precautions discussed with patient. Patient verbalized understanding and is agreeable discharge plan of care - Vital Signs Vital signs: Temp Pulse Resp BP Pulse Ox 98.5 F 86 18 140/69 H 99 07/24/20 00:16 07/24/20 00:16 07/24/20 00:16 07/24/20 00:16 07/24/20 00:16 - Laboratory Results Result Diagrams: 07/23/20 18:50 07/23/20 18:50 Laboratory Results Interpreted: 07/23/20 07/23/20 07/23/20 18:50 18:50 21:05 WBC 14.6 H Absolute Neuts (auto) 11.1 H Sodium 135.8 L Glucose 194 H ALT 37 H Urine Protein 30 H Urine Ketones 20 H Urine Blood LARGE H Urine Nitrite POSITIVE H Ur Leukocyte Esterase SMALL H Critical Laboratory Results Reviewed: No Critical Results - Radiology Results Critical Radiology Results Reviewed: No Critical Results Discharge - Discharge Clinical Impression: UTI (urinary tract infection) Qualifiers: Urinary tract infection type: site unspecified Hematuria presence: with hematuria Qualified Code(s): N39.0 - Urinary tract infection, site not specified Hemorrhoid Qualifiers: Hemorrhoid type: unspecified Qualified Code(s): K64.9 - Unspecified hemorrhoids Constipation Qualifiers: Constipation type: unspecified constipation type Qualified Code(s): K59.00 - Constipation, unspecified Abdominal pain Qualifiers: Abdominal location: unspecified location Qualified Code(s): R10.9 - Unspecified abdominal pain Condition: Stable Disposition: HOME, SELF-CARE Instructions: Abdominal Pain ([facility]), Antispasmodics ([facility]), Constipation ([facility]), Hemorrhoids ([facility]), Urinary Tract Infection ([facility]) Additional Instructions: return immediately for any new or worsening symptoms Followup with your primary care provider, call tomorrow to make a followup appointment Increase oral fluids and stay well-hydrated Urine culture is pending, we will call if you need any different treatment Take an ioor-iyb-ejdypth stool softener as directed. Prescriptions: Hydrocortisone Acetate [Anusol Hc 25 Mg Supp.Rect] 25 mg SD BID PRN #10 supp.rect PRN Reason: Dicyclomine HCl [Bentyl 20 mg Tablet] 20 mg PO QID PRN #12 tablet PRN Reason: Cefdinir 300 mg PO BID #20 capsule Forms: Return to Work Referrals: [facility] [Provider Group] - Follow up as needed
[2020-07-23] MEDS ORDERED: LIDOCAINE 2% JELLY 30 ML TUBE ONE (23:46)
[2020-07-23] MEDS ORDERED: LIDOCAINE 2% JELLY 5 ML TUBE TOP ONE (23:53)
[2020-07-23] MEDS ORDERED: MAGNESIUM CITRATE 296 ML BOTTLE PO ONE (23:54)
[2020-07-24 00:24] VITALS: BP 140/69
== END 2020-07-24 00:26 | disposition home or self-care (01) ==
LOC: ER 17:22
DX: K59.00 Constipation, unspecified (principal); N39.0 Urinary tract infection, site not specified; R31.9 Hematuria, unspecified; K64.9 Unspecified hemorrhoids; R10.31 Right lower quadrant pain; R10.32 Left lower quadrant pain; R11.0 Nausea; F17.200 Nicotine dependence, unspecified, uncomplicated; Z87.19 Personal history of other diseases of the digestive system; Z91.013 Allergy to seafood
CPT/HCPCS: 99285; 96375; 96365; 96366; 36415; 87086; 84702; 83690; 85025; 87088; 80053; 81001; 87186; 74177; J3490 ×2; J1885; J7030; J0696